=== PATIENT | male | born 1995 | race Caucasian/White ===

== ENCOUNTER 2017-09-22 10:35 | Emergency (ER) | payer BC, SELFPAY ==
[2017-09-22 10:55] VITALS: BP 131/79; PULSE 99; RESP 20; TEMP 38.1; O2SAT 99; BMI 22.8
--- NOTE | 2017-09-22 11:07 | HMH.EDUTC ---
[facility] [place]ression: Influenza Disposition: Home, Self-Care Condition on Discharge: Good Instructions: Influenza, DI for Cough -- Adult, DI for Fever (Symptom) -- Adult Additional Instructions: ? Start Tamiflu today if you are going to take it. Discussed risk and possible benefits. ?? Lots of rest ? Increase Fluids water, Gatorade, powerade, pedialyte,if /toddler/child ? Alternate Tylenol and / or ibuprofen as discussed for fever, aches, chills x 24 hours without medication for symptoms ? Follow up IMMEDIATELY for new or worsening Symptoms OR no noticeable improvement over the next 48-72 hours, 911 for difficulty or breathing ? You or your child area contagious until no fever, aches, chills for 24 hours with medication for symptoms Prescriptions: Brompheniramine/Pseudoephed/Dm [Bromfed DM Cough Syrup 5mL] 10 ml PO Q4HP PRN #350 ml PRN Reason: Cough Oseltamivir Phosphate [Tamiflu 75mg Capsule] 75 mg PO BID #10 cap Referrals: Marleny Katz [Primary Care Provider] - Forms: Work/School Release Time of Disposition: 11:20 Medical Decision Making - Medical Records Medical records reviewed: Yes: I reviewed the patient's medical records. Vital Signs: 09/22/17 10:55 Temperature 100.5 F H Temperature Source Temporal Artery Scan Pulse Rate [Right Brachial] 99 H Respiratory Rate 20 Blood Pressure [Right Arm] 131/79 Blood Pressure Mean [Right Arm] 96 Blood Pressure Source [Right Arm] Automatic Cuff Blood Pressure Position [Right Arm] Sitting 02 Sat by Pulse Oximetry 99 Oxygen Delivery Method Room Air - Lab Data Lab results reviewed: Yes: I reviewed the patient's lab results. - Go Inquiry Pt receiving controlled substance: No Go was queried for this patient: No [facility] [place] - General Stated complaint: Fever; Coughing; Body Aches Mode of Arrival: Family Vehicle Source of Information: Patient Limitations: No Limitations Description of Symptoms (Recalled from Triage Doc. by RN): fever,chills,body aches,runny nose and cough HEENT Symptoms (Recalled from RN notes): Yes (runny nose) Resp Symptoms (Recalled from RN notes): Yes (cough and congestion) Skin Symptoms (Recalled from RN notes): No MS Symptoms (Recalled from RN notes): No Functional Status (Recalled from RN notes): n/a - History of Present Illness Provider Complaint: Patient state that he began to feel bad on Sun with sore throat, body aches and chills State that late night, Sunday morning he begin to run a fever State that he was not sure how high it got though because they didn't have anything to check it with States that yesterday he continued to get worse and last night he was having to take Motrin and Tylenol to help keep the fever down - Related Data Previous Rx's Medication Instructions Recorded Brompheniramine/Pseudoephed/Dm 10 ml PO Q4HP PRN #350 ml 09/22/17 [Bromfed DM Cough Syrup 5mL] Oseltamivir Phosphate [Tamiflu 75 mg PO BID #10 cap 09/22/17 75mg Capsule] Allergies Allergy/AdvReac Type Severity Reaction Status Date / Time No Known Allergies Allergy Verified 09/22/17 10:58 - Worker's Comp Is this a Worker's Comp case?: No H History I have reviewed the patient's past medical history: Yes Medical History: Denies:: Cancer, Diabetes Mellitus Type 1, Diabetes Mellitus Type 2, MRSA Amputation: No Fractures: No - Social History Smoking Status: Current every day smoker Tobacco Type: cigarettes Alcohol Intake: current - Psychiatric History Expresses thoughts of harming self/others: None Suicide Plan Description: No Plan ROS Obtained: Yes All systems reviewed & no additional complaints - Constitutional Constitutional: Reports body ache, Reports chills, Reports fever(s) - ENT Ears, Nose, Mouth, and Throat: Reports nasal congestion, Reports sore throat - Respiratory Respiratory: Yes cough Physical Exam - General General appearance: alert, in no apparent distres
[2017-09-22 11:10] LABS: UTC Influenza A Antigen Negative (Negative); UTC Influenza B Antigen Positive (Negative)
--- NOTE | 2017-09-22 11:11 | ED_ITS ---
[facility] [place] Disposition Clinical Impression: Influenza Disposition: Home, Self-Care Condition on Discharge: Good Instructions: Influenza, DI for Cough -- Adult, DI for Fever (Symptom) -- Adult Additional Instructions: ? Start Tamiflu today if you are going to take it. Discussed risk and possible benefits. ?? Lots of rest ? Increase Fluids water, Gatorade, powerade, pedialyte,if /toddler/child ? Alternate Tylenol and / or ibuprofen as discussed for fever, aches, chills x 24 hours without medication for symptoms ? Follow up IMMEDIATELY for new or worsening Symptoms OR no noticeable improvement over the next 48-72 hours, 911 for difficulty or breathing ? You or your child area contagious until no fever, aches, chills for 24 hours with medication for symptoms Prescriptions: Brompheniramine/Pseudoephed/Dm [Bromfed DM Cough Syrup 5mL] 10 ml PO Q4HP PRN # 350 ml PRN Reason: Cough Oseltamivir Phosphate [Tamiflu 75mg Capsule] 75 mg PO BID #10 cap Referrals: Marleny Katz [Primary Care Provider] - Forms: Work/School Release Time of Disposition: 11:20 Medical Decision Making - Medical Records Medical records reviewed: Yes: I reviewed the patient's medical records. Vital Signs: 09/22/17 10:55 Temperature 100.5 F H Temperature Source Temporal Artery Scan Pulse Rate [Right Brachial] 99 H Respiratory Rate 20 Blood Pressure [Right Arm] 131/79 Blood Pressure Mean [Right Arm] 96 Blood Pressure Source [Right Arm] Automatic Cuff Blood Pressure Position [Right Arm] Sitting 02 Sat by Pulse Oximetry 99 Oxygen Delivery Method Room Air - Lab Data Lab results reviewed: Yes: I reviewed the patient's lab results. - Go Inquiry Pt receiving controlled substance: No Go was queried for this patient: No [facility] [place] HPI - General Stated complaint: Fever; Coughing; Body Aches Mode of Arrival: Family Vehicle Source of Information: Patient Limitations: No Limitations Description of Symptoms (Recalled from Triage Doc. by RN): fever,chills,body aches,runny nose and cough HEENT Symptoms (Recalled from RN notes): Yes (runny nose) Resp Symptoms (Recalled from RN notes): Yes (cough and congestion) Skin Symptoms (Recalled from RN notes): No MS Symptoms (Recalled from RN notes): No Functional Status (Recalled from RN notes): n/a - History of Present Illness Provider Complaint: Patient state that he began to feel bad on Sun with sore throat, body aches and chills State that late night, Sunday morning he begin to run a fever State that he was not sure how high it got though because they didn't have anything to check it with States that yesterday he continued to get worse and last night he was having to take Motrin and Tylenol to help keep the fever down - Related Data Previous Rx's Medication Instructions Recorded Brompheniramine/Pseudoephed/Dm 10 ml PO Q4HP PRN #350 ml 09/22/17 [Bromfed DM Cough Syrup 5mL] Oseltamivir Phosphate [Tamiflu 75 mg PO BID #10 cap 09/22/17 75mg Capsule] Allergies Allergy/AdvReac Type Severity Reaction Status Date / Time No Known Allergies Allergy Verified 09/22/17 10:58 - Worker's Comp Is this a Worker's Comp case?: No H History I have reviewed the patient's past medical history: Yes Medical History: Denies:: Cancer, Diabetes Mellitus Type 1, Diabetes Mellitus Type 2, MRSA Amputation: No
[2017-09-22 11:30] VITALS: BP 128/76; PULSE 90; RESP 20; TEMP 37.7; O2SAT 98
== END 2017-09-22 11:32 | disposition home or self-care (01) ==
PROVIDERS: Emergency Provider Nurse Practitioner; PCP Physician Assistant
DX: J11.1 Influenza due to unidentified influenza virus with other respiratory manifestations (principal)
CPT/HCPCS: 87804; 99202